=== PATIENT | female | born 1980 | race Caucasian/White ===

== ENCOUNTER 2017-01-30 19:34 | Emergency (ER) | payer OTHER ==
[~2017-01-30] VITALS: Ht 167.6 cm; Wt 95.2 kg
[2017-01-30 22:05] VITALS: BP 118/87
== END 2017-01-30 22:05 | disposition home or self-care (01) ==
LOC: ED 19:34
DX: J45.901 Unspecified asthma with (acute) exacerbation (principal)
CPT/HCPCS: J2930; J7620

== ENCOUNTER 2017-08-29 16:04 | Emergency (ER) | payer OTHER ==
[2017-08-29 20:21] VITALS: BP 110/64
== END 2017-08-29 20:21 | disposition home or self-care (01) ==
LOC: ED 16:04
DX: L50.9 Urticaria, unspecified (principal); Z88.0 Allergy status to penicillin; J45.909 Unspecified asthma, uncomplicated
CPT/HCPCS: J7512

== ENCOUNTER 2017-10-18 00:27 | Emergency (ER) | payer OTHER ==
[~2017-10-18] VITALS: Ht 167.6 cm; Wt 86.2 kg
[2017-10-18 01:06] VITALS: BP 144/89; Ht 167.6 cm; Wt 86.2 kg
== END 2017-10-18 05:03 | disposition left against medical advice (07) ==
LOC: ED 00:27
DX: Z53.21 Procedure and treatment not carried out due to patient leaving prior to being seen by health care provider (principal)

== ENCOUNTER 2018-05-26 03:53 | Emergency (ER) | payer OTHER ==
[~2018-05-26] VITALS: Ht 165.1 cm; Wt 90.5 kg
[2018-05-26 04:11] VITALS: Ht 165.1 cm; Wt 90.5 kg
[2018-05-26 06:59] LABS: BASOPHIL % 1.2 % (0-2); PLATELET COUNT 385 x10^3mcL (130-400)
[2018-05-26 07:03] LABS: RED CELL DISTRIBUTION WIDTH 14.9 % (11.5-14.5)
[2018-05-26 07:15] LABS: CALCIUM 8.1 mg/dL (8.5-10.1); CARBON DIOXIDE 24.4 mmol/L (21-32); CHLORIDE SERUM 103 mmol/L (98-107); CREATININE SERUM 0.8 mg/dL (0.6-1.0); GFR1 > 60 mL/min; GLUCOSE SERUM 99 mg/dL (74-106); POTASSIUM SERUM 3.1 mmol/L (3.5-5.1); SODIUM SERUM 138 mmol/L (136-145)
[2018-05-26 09:04] VITALS: BP 148/84
== END 2018-05-26 08:40 | disposition home or self-care (01) ==
LOC: ED 03:53
PROVIDERS: Emergency Medicine
DX: L03.211 Cellulitis of face (principal); K08.89 Other specified disorders of teeth and supporting structures; Z88.0 Allergy status to penicillin; J45.909 Unspecified asthma, uncomplicated
CPT/HCPCS: 36415; Q9967